=== PATIENT | female | born 1950 | race Caucasian/White ===

== ENCOUNTER 2017-08-04 04:22 | Inpatient (IN) ==
[2017-08-04] MEDS ORDERED: *HR* Morphine 2 MG/ML SYRINGE IVP PRN (08:03)
[2017-08-04] MEDS ORDERED: Naloxone 0.4 MG/ML INJ IVP PRN (08:03)
[2017-08-04] MEDS ORDERED: 0.9 % Sodium Chloride 1,000 ML IVC ONE (08:07)
[2017-08-04] MEDS ORDERED: D5% in Water 1,000 ML IVC PRN (08:08)
[2017-08-04] MEDS ORDERED: *HR* Dextrose 50 % in Water (Syg) 50 ML SYRINGE IVP PRN (08:08)
[2017-08-04] MEDS ORDERED: Dextrose Gel 15 GM/37.5 ML TUBE PO PRN ×2 (08:08)
--- NOTE | 2017-08-04 08:46 | Internal Med History&Physical ---
Date of Encounter: 08/04/17 Time of Encounter: 08:38 Assessment and Plan (1) Sepsis Current visit: Yes Status: Acute Presented to outside facility with fever, tachycardia, leukocytosis with left shift, and urinalysis suggestive of UTI. She also has bilateral CVA tenderness, suspect acute pyelonephritis We do not have any labs here Paper chart from outside facility reviewed Obtain blood and urine cultures here obtain Abdomen CT and Pelvis CT. Continue ceftriaxone 2g daily after obtaining cultures Repeat lactate now, from referral center-lactate was 2.0, give IVF now Continue close monitoring She is hemodynamically stable at this time Qualifiers: Sepsis type: sepsis due to unspecified organism Qualified Code(s): A41.9 - Sepsis, unspecified organism (2) Acute pyelonephritis Current visit: Yes Status: Acute as above (3) UTI (urinary tract infection) Current visit: Yes Status: Acute as above Qualifiers: Urinary tract infection type: acute pyelonephritis Qualified Code(s): N10 - Acute pyelonephritis (4) CECIL (acute kidney injury) Current visit: Yes Status: Acute baseline unknown Presented to outside facility with Cr 2.45 Continue hydration, monitor chem Follow Abd CT reports, obtain Renal USS Avoid nephrotoxins (5) Morbid obesity with BMI of 50.0-59.9, adult Current visit: Yes Status: Chronic Bed bound Lifestyle modification PTOT eval (6) Diabetes Current visit: Yes Status: Chronic check A1C Insulin dependent ADA diet FS ACHS Start on levemir, lispro, sliding scale, Addenduem: A1C resulted 4.7, hold levemir and meal time insulin, sliding scale only for now Qualifiers: Diabetes mellitus type: type 2 Diabetes mellitus complication status: with skin complications Diabetes mellitus complication detail: with foot ulcer Diabetes mellitus terminal gauger insulin use: with terminal gauger use Qualified Code(s) : E11.621 - Type 2 diabetes mellitus with foot ulcer; L97.509 - Non-pressure chronic ulcer of other part of unspecified foot with unspecified severity; L97.509 - Non-pressure chronic ulcer of other part of unspecified foot with unspecified severity; L97.509 - Non-pressure chronic ulcer of other part of unspecified foot with unspecified severity; L97.509 - Non-pressure chronic ulcer of other part of unspecified foot with unspecified severity; Z79.4 - long term care phlebotomist (current) use of insulin; Z79.4 - [facility] (current) use of insulin; Z79.4 - [facility] (current) use of insulin; Z79.4 - long term care phlebotomist (current) use of insulin (7) Factor V Leiden Current visit: Yes Status: Chronic INR 2.0 Continue Warfarin, pharm to dose (8) Chronic ulcer of leg Current visit: Yes Status: Acute Chronic, continue wound dressing, wound looks clean Consider podiatry eval prior to discharge Qualifiers: Laterality: right Non-pressure ulcer stage: unspecified non-pressure ulcer stage Qualified Code(s): L97.919 - Non-pressure chronic ulcer of unspecified part of right lower leg with unspecified severity Internal Medicine - H&P: HPI Chief complaint: I hava a UTI Admitted From: Home Plans for Post Hospital Care: Home History of present illness: Ms. Jacobsen is a 67 year old female with Morbid Obesity, Factor V leiden , Hx of DVT on Coumadin, bed bound , DM She was transferred from outside facility for management of sepsis secondary to UTI , with lactic acidosis and CECIL Patient is seen and evaluated at bedside She states she has been bed bound and not ambulatory on her feet "because her doctor said so" she has a chronic right heel wound which she has been told not to bear weight on. She was in her usual state of health till a few days ago when she developed frequency and burning urination and associated fever, chills , rigors and back pain. She also has been coughing, productive of sputum, no sick contacts, no chest pain, she has chronic leg swelling from venous stasis. She denies shortness of breath, she is currently not ambulatory. She is on anticoagulation for Factor V leiden. She denies diarrhea, she reports associated nausea and poor oral intake. No vomiting at this time. She denies recent instrumentation, no recent hospitalizations. At referral facility, she was worked up and found to be tachycardic, she had a WBC of 19.5 with left shift, Lactic acidosis of 2.0, UA showed LE negative, [place] +, few bacteria. She was sent here for further management. Past Med Surg Social Fam HX - Past Medical History Medical history: DVT, diabetes, other (factor V leiden) Psychiatric history: no psych history - Past Surgical History Surgical History: hysterectomy - Social History Smoking Status: Never smoker Smokeless Tobacco Status: No Alcohol use: none Drug use: none - Family History Mother Living Status: Cause of : alzheimers Hx Family Cancer: Yes (colon cancer) Father Living Status: Hx Family Cardiac Disorders: Yes Hx Family Cancer: Yes Internal Medicine - H&P: Meds Gabapentin [Neurontin] 600 mg PO BID 08/04/17 [History] Gabapentin [Neurontin] 900 mg PO HS 08/04/17 [History] Insulin Glargine [Lantus] 46 units IJ HS 08/04/17 [History] Warfarin [Coumadin] 5 mg PO 1800 08/04/17 [History] 3 Allergy/AdvReac Type Severity Reaction Status Date / Time acetaminophen [From Vicodin] AdvReac Fever Verified 08/04/17 12:11 hydrocodone [From Vicodin] AdvReac Fever Verified 08/04/17 12:11 All Systems PM: A 10-system review of systems was performed and is negative for pertinent findings except as documented above in the HPI. - Constitutional Constitutional: chills, fever(s), malaise - EENT Eyes: no change in vision, no discharge, no pain, no photophobia Ears: no ear discharge, no ear pain, no tinnitus Nose, mouth and throat: no dysphagia, no nasal discharge, no neck pain, no sore throat - Cardiovascular Cardiovascular ROS IM: no chest pain, no diaphoresis, no dyspnea, no lightheadedness, no palpitations, no syncope - Respiratory Respiratory: cough - Gastrointestinal Gastrointestinal: no abdominal pain, no diarrhea, no hematemesis, no hematochezia, no melena, no nausea, no vomiting - Genitourinary Genitourinary: dysuria, flank pain, urinary frequency - Musculoskeletal Musculoskeletal ROS IM: no numbness, no tingling - Integumentary Integumentary IM: no rash, no unusual bruising - Neurological Neurological ROS: no confusion, no convulsions, no focal weakness, no numbness, no tingling, no tremor(s) - Hematologic/Lymphatic Hematologic/Lymphatic: no easy bruising - Constitutional Vitals: Temp Pulse Resp BP Pulse Ox 98.5 F 87 16 103/50 97 08/04/17 06:20 08/04/17 06:20 08/04/17 06:20 08/04/17 06:20 08/04/17 06:20 General appearance: Present: disheveled, A&O X 3, morbidly obese - Head Head exam: Present: atraumatic, normocephalic - Eye Eye exam: Present: PERRL, conjuntiva pink, sclera anicteric Pupils: Present: PERRL - Neck Neck exam general surgery: Present: supple, trachea midline. Absent: lymphadenopathy - Respiratory Respiratory exam: Present: CTAB. Absent: accessory muscle use, rales, rhonchi, wheezes - Cardiovascular Cardiovascular exam: Present: RRR, +S1, +S2. Absent: diastolic murmur, gallop, rubs, systolic murmur - GI/Abdominal Additional comments: Morbidly obese, not tender, no visible wounds under her pannus. No palpably enlarged organs. - Extremities Exam Additional comments: chronic venous stasis changes with chronic dermatitis, Right heel/ankle wound, looks clean, no discharges. Pulses present. - Back Exam Additional comments: CVA tenderness bilaterally, equivocally - Neurological Exam Neurological exam: Present: alert, CN II-XII intact, oriented X3, no focal deficits. Absent: pronater drift, facial droop, speech deficit - Skin Additional comments: multiple trunk excoriations, worse on the upper extremities, looks like flea bites. -patient states she picks on them. Internal Med - H&P Results - Labs CBC & Chem 7: 08/04/17 09:46 08/04/17 09:46
[2017-08-04 09:56] LABS: Basophils % 0.2 %; Eosinophils % 0.2 %; Hematocrit 32.3 % (35.3-44.9); Hemoglobin 9.9 g/dL (11.5-15.4); Immature Granulocytes % 0.8 % (0-4); Lymphocytes # 1.5 K/mcL (0.6-4.6); Lymphocytes % 8.6 %; Mean Corpuscular HGB Conc 30.7 g/dL (31.6-35.5); Mean Corpuscular Volume 91.2 fL (83.0-100.0); Mean Platelet Volume 9.9 fL (9.4-12.4); Monocytes # 0.8 K/mcL (0.0-1.3); Monocytes % 4.4 %; Neutrophils # 14.7 K/mcL (1.6-8.9); Platelet Count 186 K/mcL (140-400); Red Blood Count 3.54 M/mcL (3.82-4.97); Segmented Neutrophils % 85.8 %
[2017-08-04] MEDS: Gabapentin 300 MG CAPSULE PO SCH ×4 (09:57→22:43)
[2017-08-04 10:01] LABS: Prothrombin Time 22.2 Seconds (9.4-12.1)
[2017-08-04 10:03] LABS: Hemoglobin A1C 4.7 %
[2017-08-04 10:18] LABS: Albumin 3.2 g/dL (3.5-5.7); Albumin/Globulin Ratio 0.8 (1.1-2.2); Bilirubin,Total 0.5 mg/dL (0.3-1.0); Calcium 8.5 mg/dL (8.6-10.3); Globulin 4.1 g/dL (2.4-3.5); Potassium 4.4 mEq/L (3.5-5.1); Total Protein 7.3 g/dL (6.4-8.9)
[2017-08-04] MEDS: Insulin LISPRO 300 UNITS/3 ML VIAL SQ SCH ×5 (11:58→22:43)
[2017-08-04] MEDS: cefTRIAXone 2,000 MG in Water for inj. (sterile) 20 ML 20 ML IVP SCH (13:24)
[2017-08-04] MEDS ORDERED: *HR* Warfarin 4 MG TABLET PO ONE (18:00)
[2017-08-04] MEDS ORDERED: Warfarin perPT PO PRN (18:00)
[2017-08-04] MEDS ORDERED: Insulin DETEMIR 100 UNIT/ML X5UNITS SQ SCH (21:00)
[2017-08-05] MEDS: Nystatin POWDER 30 GM BOTTLE TP SCH ×3 (02:19→20:56)
[2017-08-05 02:58] LABS: Basophils % 0.4 %; Eosinophils # 0.3 K/mcL (0.0-0.6); Eosinophils % 3.3 %; Hematocrit 29.3 % (35.3-44.9); Hemoglobin 8.8 g/dL (11.5-15.4); Immature Granulocytes % 0.4 % (0-4); Lymphocytes # 1.9 K/mcL (0.6-4.6); Lymphocytes % 21.6 %; Mean Corpuscular Hemoglobin 27.8 pg (28.0-33.3); Mean Corpuscular Volume 92.4 fL (83.0-100.0); Mean Platelet Volume 10.1 fL (9.4-12.4); Monocytes # 0.6 K/mcL (0.0-1.3); Monocytes % 6.4 %; Neutrophils # 5.8 K/mcL (1.6-8.9); Platelet Count 167 K/mcL (140-400); Red Blood Count 3.17 M/mcL (3.82-4.97); Red Cell Distribution Width 15.1 % (11.5-14.5); Segmented Neutrophils % 67.9 %
[2017-08-05 03:09] LABS: INR 2.2; Prothrombin Time 23.7 Seconds (9.4-12.1)
[2017-08-05 03:18] LABS: Calcium 8.4 mg/dL (8.6-10.3); Potassium 4.9 mEq/L (3.5-5.1)
[2017-08-05] MEDS: Insulin LISPRO 300 UNITS/3 ML VIAL SQ SCH ×7 (08:53→20:56)
[2017-08-05] MEDS: Gabapentin 300 MG CAPSULE PO SCH ×3 (08:54→20:56)
[2017-08-05] MEDS: cefTRIAXone 2,000 MG in Water for inj. (sterile) 20 ML 20 ML IVP SCH (12:13)
[2017-08-05] MEDS ORDERED: *HR* Warfarin 5 MG TABLET PO ONE (18:00)
[2017-08-05] MEDS: Leptospermum Honey Gel 44 ML TUBE TP SCH (22:11)
--- NOTE | 2017-08-05 23:58 | Internal Med Progress Note ---
Date of Encounter: 08/06/17 Time of Encounter: 14:58 - Assessment and plan (1) Sepsis Current Visit: Yes Status: Acute Assessment and plan: Likely from UTI/Pyelonephritis Presented to outside facility with fever, tachycardia, leukocytosis with left shift, and urinalysis suggestive of UTI. She also has bilateral CVA tenderness, suspect acute pyelonephritis Repeat lactate now, from referral center-lactate was 2.0, give IVF now Continue close monitoring She is hemodynamically stable at this time CT abdomen/pelvis: findings consistent with pyelonephritis 08/06: Continue Rocephin Repeat urinalysis, original sample not sufficient for analysis Kidney function worsened, patient easily fluid overloads but she will need hydration PT/OT recommends SNF/ECF on discharge Qualifiers: Sepsis type: sepsis due to unspecified organism Qualified Code(s): A41.9 - Sepsis, unspecified organism (2) Acute pyelonephritis Current Visit: Yes Status: Acute Assessment and plan: Plan as above (3) Chronic ulcer of leg Current Visit: Yes Status: Acute Assessment and plan: Wound care following Qualifiers: Laterality: right Non-pressure ulcer stage: unspecified non-pressure ulcer stage Qualified Code(s): L97.919 - Non-pressure chronic ulcer of unspecified part of right lower leg with unspecified severity (4) Renal failure Current Visit: Yes Status: Acute Assessment and plan: Unsure of baseline will give IV and treat sepsis and then recheck. Qualifiers: Renal failure chronicity: unspecified chronicity Qualified Code(s): N19 - Unspecified kidney failure (5) UTI (urinary tract infection) Current Visit: Yes Status: Acute Assessment and plan: As above Qualifiers: Urinary tract infection type: acute pyelonephritis Qualified Code(s): N10 - Acute pyelonephritis (6) Diabetes Current Visit: Yes Status: Chronic Qualifiers: Diabetes mellitus type: type 2 Diabetes mellitus complication status: with skin complications Diabetes mellitus complication detail: with foot ulcer Diabetes mellitus roasterman insulin use: with roasterman use Qualified Code(s) : E11.621 - Type 2 diabetes mellitus with foot ulcer; L97.509 - Non-pressure chronic ulcer of other part of unspecified foot with unspecified severity; L97.509 - Non-pressure chronic ulcer of other part of unspecified foot with unspecified severity; L97.509 - Non-pressure chronic ulcer of other part of unspecified foot with unspecified severity; L97.509 - Non-pressure chronic ulcer of other part of unspecified foot with unspecified severity; Z79.4 - halfway (current) use of insulin; Z79.4 - halfway (current) use of insulin; Z79.4 - halfway (current) use of insulin; Z79.4 - halfway (current) use of insulin (7) Factor V Leiden Current Visit: Yes Status: Chronic Assessment and plan: On coumadin (8) Morbid obesity with BMI of 50.0-59.9, adult Current Visit: Yes Status: Chronic - Subjective Interval history: Patient has complaints of back pain, has not been active. States overall feeling better since admission. States feels less groggy. - Constitutional Vitals: Temp Pulse Resp BP Pulse Ox 97.7 F 82 15 128/59 95 08/05/17 20:00 08/05/17 20:00 08/05/17 20:00 08/05/17 20:00 08/05/17 20:00 General appearance: Present: disheveled, A&O X 3, morbidly obese Exam: - Head Head exam: Present: atraumatic, normocephalic - Eye Eye exam: Present: PERRL, conjuntiva pink, sclera anicteric Pupils: Present: PERRL - Neck Neck exam general surgery: Present: supple, trachea midline. Absent: lymphadenopathy - Respiratory Respiratory exam: Present: CTAB. Absent: accessory muscle use, rales, rhonchi, wheezes - Cardiovascular Cardiovascular exam: Present: RRR, +S1, +S2. Absent: diastolic murmur, gallop, rubs, systolic murmur - GI/Abdominal Additional comments: Morbidly obese, not tender, no visible wounds under her pannus. No palpably enlarged organs. - Extremities Exam Additional comments: chronic venous stasis changes with chronic dermatitis, Right heel/ankle wound, looks clean, no discharges. Pulses present. - Back Exam Additional comments: CVA tenderness bilaterally, equivocally - Neurological Exam Neurological exam: Present: alert, CN II-XII intact, oriented X3, no focal deficits. Absent: pronater drift, facial droop, speech deficit - Skin Additional comments: multiple trunk excoriations, worse on the upper extremities, looks like flea bites. -patient states she picks on them. Internal Medicine: Result - Labs CBC & Chem 7: 08/06/17 04:19 08/06/17 04:19 Labs: Short CBC 08/05/17 Range/Units 02:32 WBC 8.6 (4.3-11.1) K/mcL Hgb 8.8 L (11.5-15.4) g/dL Hct 29.3 L (35.3-44.9) % Plt Count 167 (140-400) K/mcL Neutrophils # 5.8 (1.6-8.9) K/mcL BMP 08/05/17 02:32 Sodium 138 Potassium 4.9 Chloride 110 H Carbon Dioxide 21 L BUN 34 H Creatinine 2.36 H Glucose 77 Calcium 8.4 L - ABG Interpretation ABG results: PT/INR, D-dimer PT 23.7 Seconds (9.4-12.1) H 08/05/17 02:32 Consult Discharge Plan - Plan Referrals: Kenyetta Manning, EMILY [Primary Care Provider] -
[2017-08-06 04:52] LABS: Basophils % 0.6 %; Eosinophils # 0.5 K/mcL (0.0-0.6); Eosinophils % 8.4 %; Hematocrit 32.7 % (35.3-44.9); Hemoglobin 9.8 g/dL (11.5-15.4); Immature Granulocytes % 0.5 % (0-4); Lymphocytes # 1.5 K/mcL (0.6-4.6); Lymphocytes % 23.2 %; Mean Corpuscular Hemoglobin 27.6 pg (28.0-33.3); Mean Corpuscular Volume 92.1 fL (83.0-100.0); Mean Platelet Volume 10.6 fL (9.4-12.4); Monocytes # 0.5 K/mcL (0.0-1.3); Monocytes % 8.2 %; Neutrophils # 3.8 K/mcL (1.6-8.9); Platelet Count 180 K/mcL (140-400); Red Blood Count 3.55 M/mcL (3.82-4.97); Red Cell Distribution Width 15.4 % (11.5-14.5); Segmented Neutrophils % 59.1 %
[2017-08-06 04:57] LABS: INR 2.4; Prothrombin Time 26.5 Seconds (9.4-12.1)
[2017-08-06 05:04] LABS: Calcium 8.6 mg/dL (8.6-10.3); Potassium 4.6 mEq/L (3.5-5.1)
[2017-08-06] MEDS: Insulin LISPRO 300 UNITS/3 ML VIAL SQ SCH ×7 (08:16→20:03)
[2017-08-06] MEDS ORDERED: 0.9 % Sodium Chloride 500 ML IVC ONE (08:17)
--- NOTE | 2017-08-06 08:27 | Internal Med Progress Note ---
Date of Encounter: 08/06/17 Time of Encounter: 08:24 - Assessment and plan (1) Sepsis Current Visit: Yes Status: Acute Assessment and plan: Likely from UTI/Pyelonephritis Presented to outside facility with fever, tachycardia, leukocytosis with left shift, and urinalysis suggestive of UTI. She also has bilateral CVA tenderness, suspect acute pyelonephritis Repeat lactate now, from referral center-lactate was 2.0, give IVF now Continue close monitoring She is hemodynamically stable at this time CT abdomen/pelvis: findings consistent with pyelonephritis 08/06: Continue Rocephin Repeat urinalysis, original sample not sufficient for analysis Kidney function worsened, patient easily fluid overloads but she will need hydration PT/OT recs SNF/ECF on discharge Qualifiers: Sepsis type: sepsis due to unspecified organism Qualified Code(s): A41.9 - Sepsis, unspecified organism (2) Acute pyelonephritis Current Visit: Yes Status: Acute Assessment and plan: Plan as above (3) Renal failure Current Visit: Yes Status: Acute Assessment and plan: Unsure if acute or chronic, baseline unknown CT abdomen/pelvis shows findings consistent with pyelonephritis. Urine output about 300 per 8 hours Patient will need additional IVF. She does get fluid overloaded easily so we will start with 500 ml bolus followed by 100 ml/hr and check fluid status. Strict I/Os Consult Nephrology, recommendations appreciated. Qualifiers: Renal failure chronicity: unspecified chronicity Qualified Code(s): N19 - Unspecified kidney failure (4) UTI (urinary tract infection) Current Visit: Yes Status: Acute Qualifiers: Urinary tract infection type: acute pyelonephritis Qualified Code(s): N10 - Acute pyelonephritis (5) Morbid obesity with BMI of 50.0-59.9, adult Current Visit: Yes Status: Chronic (6) Diabetes Current Visit: Yes Status: Chronic Assessment and plan: Levemir 22 units HS, Humalog TID with meals, ISS Qualifiers: Diabetes mellitus type: type 2 Diabetes mellitus complication status: with skin complications Diabetes mellitus complication detail: with foot ulcer Diabetes mellitus alf insulin use: with alf use Qualified Code(s) : E11.621 - Type 2 diabetes mellitus with foot ulcer; L97.509 - Non-pressure chronic ulcer of other part of unspecified foot with unspecified severity; L97.509 - Non-pressure chronic ulcer of other part of unspecified foot with unspecified severity; L97.509 - Non-pressure chronic ulcer of other part of unspecified foot with unspecified severity; L97.509 - Non-pressure chronic ulcer of other part of unspecified foot with unspecified severity; Z79.4 - retirement (current) use of insulin; Z79.4 - terminologist (current) use of insulin; Z79.4 - terminologist (current) use of insulin; Z79.4 - terminologist (current) use of insulin (7) Chronic ulcer of leg Current Visit: Yes Status: Acute Assessment and plan: Wound care following Qualifiers: Laterality: right Non-pressure ulcer stage: unspecified non-pressure ulcer stage Qualified Code(s): L97.919 - Non-pressure chronic ulcer of unspecified part of right lower leg with unspecified severity - Subjective Interval history: Patient doing better Now ambulates Denies fevers/chills, denies pain. - Constitutional Vitals: Temp Pulse Resp BP Pulse Ox 98.2 F 84 14 124/64 99 08/06/17 05:38 08/06/17 05:38 08/06/17 05:38 08/06/17 05:38 08/06/17 05:38 General appearance: Present: disheveled, A&O X 3, morbidly obese Exam: - Head Head exam: Present: atraumatic, normocephalic - Eye Eye exam: Present: PERRL, conjuntiva pink, sclera anicteric Pupils: Present: PERRL - Neck Neck exam general surgery: Present: supple, trachea midline. Absent: lymphadenopathy - Respiratory Respiratory exam: Present: CTAB. Absent: accessory muscle use, rales, rhonchi, wheezes - Cardiovascular Cardiovascular exam: Present: RRR, +S1, +S2. Absent: diastolic murmur, gallop, rubs, systolic murmur - GI/Abdominal Additional comments: Morbidly obese, not tender, no visible wounds under her pannus. No palpably enlarged organs. - Extremities Exam Additional comments: chronic venous stasis changes with chronic dermatitis, Right heel/ankle wound, looks clean, no discharges. Pulses present. - Back Exam Additional comments: CVA tenderness bilaterally, equivocally - Neurological Exam Neurological exam: Present: alert, CN II-XII intact, oriented X3, no focal deficits. Absent: pronater drift, facial droop, speech deficit - Skin Additional comments: multiple trunk excoriations Internal Medicine: Result - Labs CBC & Chem 7: 08/06/17 04:19 08/06/17 04:19 Labs: Short CBC 08/06/17 Range/Units 04:19 WBC 6.3 (4.3-11.1) K/mcL Hgb 9.8 L (11.5-15.4) g/dL Hct 32.7 L (35.3-44.9) % Plt Count 180 (140-400) K/mcL Neutrophils # 3.8 (1.6-8.9) K/mcL BMP 08/06/17 04:19 Sodium 139 Potassium 4.6 Chloride 110 H Carbon Dioxide 22 L BUN 38 H Creatinine 2.50 H Glucose 93 Calcium 8.6 - ABG Interpretation ABG results: PT/INR, D-dimer PT 26.5 Seconds (9.4-12.1) H 08/06/17 04:19 Consult Discharge Plan - Plan Referrals: Kenyetta Manning, DIVING [employer]ARD [employer]SEMBLER [Primary Care Provider] -
[2017-08-06] MEDS: 0.9 % Sodium Chloride 1,000 ML IVC SCH (09:36)
[2017-08-06 09:38] LABS: Bilirubin,Urine Negative (Negative); Blood,Urine Large (Negative); Clarity,Urine Cloudy (Clear); Color,Urine Yellow (Yellow); Glucose,Urine (UA) Normal (Normal); Ketones,Urine Negative (Negative); Leukocyte Esterase,Urine Small (Negative); Nitrite,Urine Negative (Negative); Protein,Urine 100 mg/dL (Neg-Trace); Specific Gravity,Urine 1.011 (1.010-1.025); Urobilinogen,Urine Normal (Normal)
[2017-08-06] MEDS: Leptospermum Honey Gel 44 ML TUBE TP SCH ×2 (09:39→20:04)
[2017-08-06] MEDS: Nystatin POWDER 30 GM BOTTLE TP SCH ×2 (09:39→20:05)
[2017-08-06 09:40] LABS: Bacteria,Urine None Seen per hpf (None-Few); Hyaline Casts,Urine Few per lpf (None-Few); Squamous Epithelial Cell,Urine Many per lpf (None-Few); WBC,Urine 15-30 per hpf (0-3)
--- NOTE | 2017-08-06 11:27 | Nephrology Consult Note ---
<Emmy Monzon - Last Filed: 08/06/17 11:42> Date of Encounter: 08/06/17 Time of Encounter: 11:23 Assessment and Plan (1) CECIL (acute kidney injury) Status: Acute Review of old labs show one result from 02/06/15-Scr 1.65 and GFR 31 Today Scr 2.50, GFR 19 Unclear if patient has CKD or all CECIL so we will proceed with both the CECIL and CKD workup to include: urine sodium, urine creatinine, urine eosinophils, CPK, renal ultrasound, serum uric acid, PTH, C3 & C4 compliment, Vit D 25-OH, SAGAR, SPEP, UPEP, protein/creatinine ratio UPO 200ml yesterday Today 600ml so far Agree with IVF Continue strict I/Os Avoid nephrotoxins Patient is on a high dose of Gabapentin-recommend renal appropriate dose: if Scr baseline is truly in the 30s then no more than 700mg bid; if workup shows kidney function is even less, then Gabapentin would need to be decreased further. (2) Acute pyelonephritis Status: Acute per primary team (3) Sepsis Status: Acute per primary team Qualifiers: Sepsis type: sepsis due to unspecified organism Qualified Code(s): A41.9 - Sepsis, unspecified organism (4) Diabetes Status: Chronic per primary team Qualifiers: Diabetes mellitus type: type 2 Diabetes mellitus complication status: with skin complications Diabetes mellitus complication detail: with foot ulcer Diabetes mellitus alf insulin use: with termite treater helper use Qualified Code(s) : E11.621 - Type 2 diabetes mellitus with foot ulcer; L97.509 - Non-pressure chronic ulcer of other part of unspecified foot with unspecified severity; L97.509 - Non-pressure chronic ulcer of other part of unspecified foot with unspecified severity; L97.509 - Non-pressure chronic ulcer of other part of unspecified foot with unspecified severity; L97.509 - Non-pressure chronic ulcer of other part of unspecified foot with unspecified severity; Z79.4 - USP (current) use of insulin; Z79.4 - USP (current) use of insulin; Z79.4 - USP (current) use of insulin; Z79.4 - USP (current) use of insulin (5) Morbid obesity with BMI of 50.0-59.9, adult Status: Chronic per primary team History of Present Illness - Reason for Consult Consult date: 08/06/17 - Chief Complaint CECIL, sepsis - History of Present Illness Ms. Jacobsen is a 67 year old female with a PMH of morbid obesity, Factor V leiden , Hx of DVT on Coumadin, bed bound , and DM She was transferred from outside facility for management of sepsis secondary to UTI , with lactic acidosis and CECIL. She has chronic leg swelling from venous stasis and is on anticoagulation for Factor V leiden. Nephrology has been consulted for decreased kidney function. Patient states she is unaware of any kidney disease either in herself or any family member. She denies taking NSAIDs. She takes Gabapentin 600mg am & noon, plus another 900mg at hs. Review of old labs on shows one lab on 02/06/15 with a Scr of 1.65 and GFR of 31. Past Med Surg Social Fam HX - Past Medical History Medical history: DVT, diabetes, other (factor V leiden) Psychiatric history: no psych history - Past Surgical History Surgical History: hysterectomy - Social History Smoking Status: Never smoker Smokeless Tobacco Status: No Alcohol use: none Drug use: none - Family History Mother Living Status: Cause of : alzheimers Hx Family Cancer: Yes (colon cancer) Father Living Status: Hx Family Cardiac Disorders: Yes Hx Family Cancer: Yes Medications and Allergies Insulin Glargine [Lantus] 46 units IJ HS 08/04/17 [History] Cephalexin [Keflex] 500 mg PO TID 7 Days #21 capsule 08/10/17 [Rx] Ergocalciferol (VITAMIN D2) [Drisdol (50,000 Unit)] 50,000 unit PO QWEEK #4 capsule 08/10/17 [Rx] Ondansetron [Zofran] 4 mg PO Q8HR PRN #15 tablet 08/10/17 [Rx] 3 Allergy/AdvReac Type Severity Reaction Status Date / Time acetaminophen [From Vicodin] AdvReac Fever Verified 08/04/17 12:11 hydrocodone [From Vicodin] AdvReac Fever Verified 08/04/17 12:11 Review of Systems All Systems: reviewed and no additional remarkable complaints except as stated Constitutional: lethargy, malaise, no fever(s) Cardiovascular: leg edema, no chest pain, no dyspnea Gastrointestinal: nausea, no diarrhea Neurological: no abnormal speech, no behavioral changes Exam - Vital Signs Vital signs: Initial Vital Signs Temp Pulse Resp BP Pulse Ox 98.5 F 87 16 103/50 97 08/04/17 06:20 08/04/17 06:20 08/04/17 06:20 08/04/17 06:20 08/04/17 06:20 Vital Signs - Last 8 Hours Temp Pulse Resp BP Pulse Ox 08/06/17 09:44 99 08/06/17 08:00 97.5 F L 83 14 146/77 99 08/06/17 05:38 98.2 F 84 14 124/64 99 Intake and Output 08/05/17 08/06/17 08/06/17 23:59 07:59 15:59 Intake Total 240 / 240 400 / 400 Output Total 300 / 300 300 / 300 Balance 240 / 240 -300 / -300 100 / 100 Intake: Oral 240 / 240 400 / 400 Output: Urine 300 / 300 300 / 300 Other: Meal Dinner Breakfast Percent of Meal Consumed 100% 100% # Voids 1 1 Weight 139.797 kg Blood Glucose* 107 80 Patient Weight 08/06/17 23:59 Weight 139.797 kg - General Appearance General appearance: obese EENT: ATNC, mucous membranes moist, hearing intact, vision intact Neck: supple Respiratory: clear Cardiology: edema, normal S1, normal S2 Gastrointestinal: no tenderness, no guarding Integumentary: warm and dry Psychiatric: mood/affect appropriate, cooperative Results - Lab Results 08/06/17 04:19 08/06/17 04:19 Most recent lab results Calcium 8.6 mg/dL (8.6-10.3) 08/06/17 04:19 Consult Discharge Plan - Plan Instructions: Cephalexin (By mouth), Ondansetron (By mouth) Referrals: Kenyetta Manning, INFORMATION SYSTEMS SECURITY DEVELOPER [Primary Care Provider] - (Please call on Saturday to set up a hospital follow up.) Prescriptions: Ondansetron [Zofran] 4 mg PO Q8HR PRN #15 tablet PRN Reason: Nausea And Vomiting Cephalexin [Keflex] 500 mg PO TID 7 Days #21 capsule Ergocalciferol (VITAMIN D2) [Drisdol (50,000 Unit)] 50,000 unit PO QWEEK #4 capsule <Sharon Wasserman - Last Filed: 08/14/17 13:30> Date of Encounter: 08/06/17 Exam - Vital Signs Vital signs: Initial Vital Signs Temp Pulse Resp BP Pulse Ox 98.5 F 87 16 103/50 97 08/04/17 06:20 08/04/17 06:20 08/04/17 06:20 08/04/17 06:20 08/04/17 06:20 Results - Lab Results 08/10/17 05:55 08/10/17 05:55 Most recent lab results Calcium 8.3 mg/dL (8.6-10.3) L 08/10/17 05:55 Phosphorus 3.8 mg/dL (2.7-4.5) 08/09/17 06:36 Magnesium 2.1 mg/dL (1.6-2.6) 08/09/17 06:36 Urine Creatinine 58 mg/dL 08/06/17 14:40 Urine Sodium 73.5 mEq/L 08/06/17 14:40 Urine Total Protein SEE NOTE mg/d (10-140) 08/06/17 14:40 - Attending Attestation I examined this patient and my medical decision-making was reviewed with the Resident Physician/INFORMATION SYSTEMS SECURITY DEVELOPER. I agree with the documented findings, disposition and treatment plan as described except to the extent set forth below. Pt seen and examined with PMH of DM, factor v leiden with DVT on anticoag, morbid obesity and bed bound with chronic heel infection admitted as a transfer and being treated for UTI with sepsis. Renal consulted for rising SCr. Pt is a rather poor historian and no family member present at the time of evaluation. Most information obtained from previous records. Pt denied any prior history of renal disease but GFR in our system from 2014 was noted at 31. Will initiate both CECIL and CKD workup at this time. agree with IVF for volume repletion. No acute indication for ORACLE EBS ARCHITECT just yet but did dicuss the possibility if no improvement. Avoid nephrotoxins if possible and renally dosed all meds to reflect CECIL status.
[2017-08-06] MEDS: *HR* OxyCODONE Immed Rel 5 MG TABLET PO PRN (11:33)
[2017-08-06 12:42] LABS: Creatine Kinase < 10 Units/L (30-223); Uric Acid 7.2 mg/dL (2.3-7.6)
[2017-08-06] MEDS: cefTRIAXone 2,000 MG in Water for inj. (sterile) 20 ML 20 ML IVP SCH (13:00)
[2017-08-06 15:33] LABS: Protein/Creatinine Ratio,Urine 1.6 mg/mg (0.00-0.20); Sodium, Urine 73.5 mEq/L
[2017-08-06] MEDS ORDERED: *HR* Warfarin 5 MG TABLET PO ONE (18:00)
[2017-08-07 04:51] LABS: Basophils % 0.3 %; Eosinophils # 0.5 K/mcL (0.0-0.6); Eosinophils % 8.8 %; Hematocrit 30.3 % (35.3-44.9); Hemoglobin 9.2 g/dL (11.5-15.4); Immature Granulocytes % 0.3 % (0-4); Lymphocytes # 1.3 K/mcL (0.6-4.6); Lymphocytes % 21.9 %; Mean Corpuscular HGB Conc 30.4 g/dL (31.6-35.5); Mean Corpuscular Hemoglobin 27.9 pg (28.0-33.3); Mean Corpuscular Volume 91.8 fL (83.0-100.0); Mean Platelet Volume 10.7 fL (9.4-12.4); Monocytes # 0.4 K/mcL (0.0-1.3); Monocytes % 6.9 %; Neutrophils # 3.6 K/mcL (1.6-8.9); Platelet Count 167 K/mcL (140-400); Red Cell Distribution Width 15.3 % (11.5-14.5); Segmented Neutrophils % 61.8 %
[2017-08-07 05:07] LABS: INR 3.2; Prothrombin Time 35.4 Seconds (9.4-12.1)
[2017-08-07 05:17] LABS: Calcium 8.2 mg/dL (8.6-10.3); Potassium 4.5 mEq/L (3.5-5.1)
[2017-08-07] MEDS: Leptospermum Honey Gel 44 ML TUBE TP SCH (07:59)
[2017-08-07] MEDS: Nystatin POWDER 30 GM BOTTLE TP SCH (07:59)
[2017-08-07] MEDS: Insulin LISPRO 300 UNITS/3 ML VIAL SQ SCH ×7 (08:04→21:00)
[2017-08-07] MEDS: cefTRIAXone 2,000 MG in Water for inj. (sterile) 20 ML 20 ML IVP SCH (13:03)
--- NOTE | 2017-08-07 13:09 | Nephrology Progress Note ---
<Artem Hogan - Last Filed: 08/07/17 15:43> Date of Encounter: 08/07/17 Time of Encounter: 13:09 - Assessment and Plan (1) CECIL (acute kidney injury) Status: Acute CECIL on CKD stage III Baseline GFR 31 Today Scr 2.44, GFR 20 FeNa 2.2 % indicating Intrinsic etiology (e.g. ATN, AIN, glomerulonephritides) Renal ultrasound revealed mildly echogenic kidneys which may be seen in medical renal disease, 7.1 cm mildly complex left renal cyst, and significant postvoid residual measuring approximately 257 mL. UPO 1000ml yesterday Continue IVF Continue strict I/Os Avoid nephrotoxins Patient is on a high dose of Gabapentin-recommend renal appropriate dose: if Scr baseline is truly in the 30s then no more than 700mg bid; if workup shows kidney function is even less, then Gabapentin would need to be decreased further. (2) CKD (chronic kidney disease), stage III Status: Chronic Baseline GFR 31 Avoid nephrotoxins Continue to monitor (3) Proteinuria Status: Acute FeNa 2.2 % indicating Intrinsic etiology (e.g. ATN, AIN, glomerulonephritides) UA reveals 100 mg/dL urine protein Elevated protein/creatinine ratio 1.60 Negative urine eosinophils CPK < 10, serum uric acid 7.2, PTH 85, SAGAR, SPEP, UPEP, C3 & C4 compliment levels pending Qualifiers: Proteinuria type: unspecified Qualified Code(s): R80.9 - Proteinuria, unspecified (4) Vitamin D deficiency Status: Acute Vit D level 14 Supplement Vit D 50,000 U weekly Outpatient monitoring (5) Acute pyelonephritis Status: Acute Management per primary team (6) Renal cyst, left Status: Acute Renal ultrasound revealed 7.1 cm mildly complex left renal cyst Outpatient monitoring (7) Sepsis Status: Acute Management per primary team Qualifiers: Sepsis type: sepsis due to unspecified organism Qualified Code(s): A41.9 - Sepsis, unspecified organism (11) Diabetes Status: Chronic Management per primary team Qualifiers: Diabetes mellitus type: type 2 Diabetes mellitus complication status: with skin complications Diabetes mellitus complication detail: with foot ulcer Diabetes mellitus petroleum terminal plant operator insulin use: with petroleum terminal plant operator use Qualified Code(s) : E11.621 - Type 2 diabetes mellitus with foot ulcer; L97.509 - Non-pressure chronic ulcer of other part of unspecified foot with unspecified severity; L97.509 - Non-pressure chronic ulcer of other part of unspecified foot with unspecified severity; L97.509 - Non-pressure chronic ulcer of other part of unspecified foot with unspecified severity; L97.509 - Non-pressure chronic ulcer of other part of unspecified foot with unspecified severity; Z79.4 - MCC (current) use of insulin; Z79.4 - MCC (current) use of insulin; Z79.4 - MCC (current) use of insulin; Z79.4 - exterminator (current) use of insulin (12) Morbid obesity with BMI of 50.0-59.9, adult Status: Chronic Management per primary team Subjective Principal diagnosis: CECIL on CKD Interval history: Patient seen and examined resting comfortably in bed. Patient denies and new c/ o today. She had 1L UOP yesterday and reports adequate hydration. Family is at bedside. Objective - Vital Signs Vital signs: Vital Signs Temp Pulse Resp BP Pulse Ox 08/07/17 11:29 97.7 F 72 17 133/60 95 08/07/17 07:10 98.6 F 82 16 124/70 96 08/07/17 04:54 97.7 F 83 16 118/58 90 08/07/17 00:07 97.9 F 86 12 129/63 97 08/06/17 19:55 98.5 F 89 12 131/66 96 08/06/17 16:03 98.4 F 90 14 144/68 95 Intake and Output 08/06/17 08/07/17 08/07/17 23:59 07:59 15:59 Intake Total 400 / 400 240 / 240 Output Total 400 / 400 700 / 700 Balance -400 / -400 -300 / -300 240 / 240 Intake: Oral 240 / 240 Free Water 400 / 400 Output: Urine 400 / 400 700 / 700 Other: Meal Breakfast Percent of Meal Consumed 100% # Voids 1 Weight 142.5 kg Blood Glucose* 147 86 91 Patient Weight 08/07/17 23:59 Weight 142.5 kg - General Appearance General appearance: Present: well-developed, well-nourished, appears started age , obese EENT: Present: ATNC, PERRL, mucous membranes moist Neck: Present: supple Respiratory: Present: clear Cardiology: Present: no murmurs, no rub, no gallops, edema (Chronic lymphedema BLE), regular rate, regular rhythm, normal S1, normal S2 Gastrointestinal: Present: normoactive bowel sounds, no tenderness, no guarding , no organomegaly Integumentary: Present: no rash, warm and dry Neurologic: Present: no focal deficit, alert and oriented x3 Musculoskeletal: Present: no erythema, no cyanosis Psychiatric: Present: mood/affect appropriate, cooperative - Lab 08/07/17 04:15 08/07/17 04:15 Most recent lab results Calcium 8.2 mg/dL (8.6-10.3) L 08/07/17 04:15 Urine Creatinine 58 mg/dL 08/06/17 14:40 Urine Sodium 73.5 mEq/L 08/06/17 14:40 Urine Total Protein 93 mg/dL 08/06/17 14:40 - Imaging Kidney/bladder ultrasound: report reviewed Consult Discharge Plan - Plan Instructions: Cephalexin (By mouth), Ondansetron (By mouth) Referrals: Kenyetta Manning, MANIPULATIVE THERAPY SPECIALIST [Primary Care Provider] - (Please call on Saturday to set up a hospital follow up.) Prescriptions: Ondansetron [Zofran] 4 mg PO Q8HR PRN #15 tablet PRN Reason: Nausea And Vomiting Cephalexin [Keflex] 500 mg PO TID 7 Days #21 capsule Ergocalciferol (VITAMIN D2) [Drisdol (50,000 Unit)] 50,000 unit PO QWEEK #4 capsule <Sharon Wasserman - Last Filed: 09/03/17 23:41> Date of Encounter: 08/07/17 Objective - Lab 08/10/17 05:55 08/10/17 05:55 Most recent lab results Calcium 8.3 mg/dL (8.6-10.3) L 08/10/17 05:55 Phosphorus 3.8 mg/dL (2.7-4.5) 08/09/17 06:36 Magnesium 2.1 mg/dL (1.6-2.6) 08/09/17 06:36 Urine Creatinine 58 mg/dL 08/06/17 14:40 Urine Sodium 73.5 mEq/L 08/06/17 14:40 Urine Total Protein SEE NOTE mg/d (10-140) 08/06/17 14:40 - Attending Attestation I examined this patient and my medical decision-making was reviewed with the Resident Physician. I agree with the documented findings, disposition and treatment plan as described except to the extent set forth below. Pt seen and examined with family at bedside. UOP noted at 1000cc in the past 24hrs. Scr noted at 2.4, GFR 20 which is improving, baseline GFR around 30. Continue to avoid nephrotoxins if possible. No acute indication for FORENSIC MEDICAL EXAMINER. Renal dose all meds if possible.
[2017-08-07] MEDS: Sennosides/Docusate Sodium TABLET PO SCH ×2 (13:24→20:33)
[2017-08-07] MEDS: 0.9 % Sodium Chloride 1,000 ML IVC SCH ×2 (15:55→16:01)
[2017-08-07] MEDS: *HR* OxyCODONE Immed Rel 5 MG TABLET PO PRN (20:33)
--- NOTE | 2017-08-07 21:15 | Internal Med Progress Note ---
Date of Encounter: 08/07/17 Time of Encounter: 16:14 - Assessment and plan (1) Sepsis Current Visit: Yes Status: Acute Assessment and plan: Likely from UTI/Pyelonephritis Presented to outside facility with fever, tachycardia, leukocytosis with left shift, and urinalysis suggestive of UTI. She also has bilateral CVA tenderness, suspect acute pyelonephritis Repeat lactate now, from referral center-lactate was 2.0, give IVF now Continue close monitoring She is hemodynamically stable at this time CT abdomen/pelvis: findings consistent with pyelonephritis 08/06: Continue Rocephin Repeat urinalysis, original sample not sufficient for analysis Kidney function worsened, patient easily fluid overloads but she will need hydration PT/OT recs SNF/ECF on discharge Qualifiers: Sepsis type: sepsis due to unspecified organism Qualified Code(s): A41.9 - Sepsis, unspecified organism (2) Gross hematuria Current Visit: Yes Status: Acute Assessment and plan: Patient denied dysuria, frequency, change in odor. INR 3.2 today Likely related to UTI with treatment with coumadin for history of DVT. Renal cyst possible contributor - Hold next dose of coumadin - Follow-up INR and H&H - If hematuria persists, will consult Urology (3) Acute pyelonephritis Current Visit: Yes Status: Acute Assessment and plan: (UTI). Continue treatment of sepsis (4) Renal failure Current Visit: Yes Status: Acute Assessment and plan: Unsure if acute or chronic, baseline unknown CT abdomen/pelvis shows findings consistent with pyelonephritis. Urine output about 300 per 8 hours Patient will need additional IVF. She does get fluid overloaded easily so we will start with 500 ml bolus followed by 100 ml/hr and check fluid status. Strict I/Os Nephrology on board, recommendation appreciated. Qualifiers: Renal failure chronicity: unspecified chronicity Qualified Code(s): N19 - Unspecified kidney failure (5) UTI (urinary tract infection) Current Visit: Yes Status: Acute Assessment and plan: As above Qualifiers: Urinary tract infection type: acute pyelonephritis Qualified Code(s): N10 - Acute pyelonephritis (6) Morbid obesity with BMI of 50.0-59.9, adult Current Visit: Yes Status: Chronic (7) Diabetes Current Visit: Yes Status: Chronic Assessment and plan: Levemir 22 units HS, Humalog TID with meals, ISS Qualifiers: Diabetes mellitus type: type 2 Diabetes mellitus complication status: with skin complications Diabetes mellitus complication detail: with foot ulcer Diabetes mellitus prison insulin use: with prison use Qualified Code(s) : E11.621 - Type 2 diabetes mellitus with foot ulcer; L97.509 - Non-pressure chronic ulcer of other part of unspecified foot with unspecified severity; L97.509 - Non-pressure chronic ulcer of other part of unspecified foot with unspecified severity; L97.509 - Non-pressure chronic ulcer of other part of unspecified foot with unspecified severity; L97.509 - Non-pressure chronic ulcer of other part of unspecified foot with unspecified severity; Z79.4 - buttermaker (current) use of insulin; Z79.4 - retirement (current) use of insulin; Z79.4 - buttermaker (current) use of insulin; Z79.4 - retirement (current) use of insulin (8) Chronic ulcer of leg Current Visit: Yes Status: Acute Assessment and plan: Wound care following Qualifiers: Laterality: right Non-pressure ulcer stage: unspecified non-pressure ulcer stage Qualified Code(s): L97.919 - Non-pressure chronic ulcer of unspecified part of right lower leg with unspecified severity - Subjective Interval history: Had onset of hematuria this afternoon and nursing reported there was clots present. She was transferred to another floor later in day for administrative reasons. Nurse who took over patient care also noted that she had gross hematuria. This time without clots. Patient denied abdominal/suprapubic/flank pain, dysuria, frequency, change in odor. - Constitutional Vitals: Temp Pulse Resp BP Pulse Ox 97.5 F L 80 18 129/73 88 08/07/17 19:48 08/07/17 19:48 08/07/17 19:48 08/07/17 19:48 08/07/17 19:48 General appearance: Present: disheveled, A&O X 3, morbidly obese Exam: CVS: RRR Lungs: CTAB Abd: NT/ND, normal bowel sounds Ext: + bipedal edema extending to shins Internal Medicine: Result - Labs CBC & Chem 7: 08/07/17 04:15 08/07/17 04:15 Labs: Short CBC 08/07/17 Range/Units 04:15 WBC 5.8 (4.3-11.1) K/mcL Hgb 9.2 L (11.5-15.4) g/dL Hct 30.3 L (35.3-44.9) % Plt Count 167 (140-400) K/mcL Neutrophils # 3.6 (1.6-8.9) K/mcL BMP 08/07/17 04:15 Sodium 141 Potassium 4.5 Chloride 112 H Carbon Dioxide 24 BUN 37 H Creatinine 2.44 H Glucose 91 Calcium 8.2 L - ABG Interpretation ABG results: PT/INR, D-dimer PT 35.4 Seconds (9.4-12.1) H 08/07/17 04:15 Consult Discharge Plan - Plan Referrals: Kenyetta Manning, EMILY [Primary Care Provider] -
[2017-08-08 02:38] LABS: Alpha 2 Globulin (PEP) 0.84 g/dL (0.48-1.05); Beta Globulin (PEP) 1.25 g/dL (0.48-1.10)
[2017-08-08] MEDS: 0.9 % Sodium Chloride 1,000 ML IVC SCH (02:41)
[2017-08-08] MEDS: Nystatin POWDER 30 GM BOTTLE TP SCH ×3 (02:45→21:17)
[2017-08-08] MEDS: Leptospermum Honey Gel 44 ML TUBE TP SCH ×3 (02:45→21:17)
[2017-08-08] MEDS: *HR* OxyCODONE Immed Rel 5 MG TABLET PO PRN (03:45)
[2017-08-08 05:07] LABS: Basophils % 0.6 %; Eosinophils # 0.5 K/mcL (0.0-0.6); Eosinophils % 7.7 %; Hematocrit 31.6 % (35.3-44.9); Hemoglobin 9.4 g/dL (11.5-15.4); Immature Granulocytes % 0.4 % (0-4); Lymphocytes # 0.9 K/mcL (0.6-4.6); Lymphocytes % 13.4 %; Mean Corpuscular HGB Conc 29.7 g/dL (31.6-35.5); Mean Corpuscular Hemoglobin 27.2 pg (28.0-33.3); Mean Corpuscular Volume 91.6 fL (83.0-100.0); Mean Platelet Volume 10.3 fL (9.4-12.4); Monocytes # 0.6 K/mcL (0.0-1.3); Monocytes % 8.3 %; Neutrophils # 4.7 K/mcL (1.6-8.9); Nucleated Red Blood Cells 0.3 /100 WBC (0); Platelet Count 173 K/mcL (140-400); Red Blood Count 3.45 M/mcL (3.82-4.97); Red Cell Distribution Width 15.1 % (11.5-14.5); Segmented Neutrophils % 69.6 %
[2017-08-08 05:24] LABS: Calcium 8.4 mg/dL (8.6-10.3); Potassium 4.4 mEq/L (3.5-5.1)
[2017-08-08 05:32] LABS: INR 4.4; Prothrombin Time 48.9 Seconds (9.4-12.1)
--- NOTE | 2017-08-08 07:16 | Nephrology Progress Note ---
<Artem Hogan - Last Filed: 08/08/17 16:13> Date of Encounter: 08/08/17 Time of Encounter: 07:16 - Assessment and Plan (1) CECIL (acute kidney injury) Status: Acute CECIL on CKD stage III Baseline GFR 31 Today Scr 2.25, GFR 22 FeNa 2.2 % indicating Intrinsic etiology (e.g. ATN, AIN, glomerulonephritides) Renal ultrasound revealed mildly echogenic kidneys which may be seen in medical renal disease, 7.1 cm mildly complex left renal cyst, and significant postvoid residual measuring approximately 257 mL. UPO 1050ml yesterday Continue IVF Continue strict I/Os Avoid nephrotoxins Patient is on a high dose of Gabapentin-recommend renal appropriate dose: if Scr baseline is truly in the 30s then no more than 700mg bid; if workup shows kidney function is even less, then Gabapentin would need to be decreased further. (2) CKD (chronic kidney disease), stage III Status: Chronic Baseline GFR 31 Avoid nephrotoxins Continue to monitor (3) Proteinuria Status: Acute FeNa 2.2 % indicating Intrinsic etiology (e.g. ATN, AIN, glomerulonephritides) UA reveals 100 mg/dL urine protein Elevated protein/creatinine ratio 1.60 Negative urine eosinophils CPK < 10, serum uric acid 7.2, PTH 85, SAGAR negative, C3 & C4 compliment levels WNL UPEP pending Qualifiers: Proteinuria type: unspecified Qualified Code(s): R80.9 - Proteinuria, unspecified (4) Vitamin D deficiency Status: Acute Vit D level 14 Supplement Vit D 50,000 U weekly Outpatient monitoring (5) Acute pyelonephritis Status: Acute Management per primary team (6) Renal cyst, left Status: Acute Renal ultrasound revealed 7.1 cm mildly complex left renal cyst Outpatient monitoring (7) Sepsis Status: Acute Management per primary team Qualifiers: Sepsis type: sepsis due to unspecified organism Qualified Code(s): A41.9 - Sepsis, unspecified organism (11) Diabetes Status: Chronic Management per primary team Qualifiers: Diabetes mellitus type: type 2 Diabetes mellitus complication status: with skin complications Diabetes mellitus complication detail: with foot ulcer Diabetes mellitus shelter insulin use: with intermediate manager use Qualified Code(s) : E11.621 - Type 2 diabetes mellitus with foot ulcer; L97.509 - Non-pressure chronic ulcer of other part of unspecified foot with unspecified severity; L97.509 - Non-pressure chronic ulcer of other part of unspecified foot with unspecified severity; L97.509 - Non-pressure chronic ulcer of other part of unspecified foot with unspecified severity; L97.509 - Non-pressure chronic ulcer of other part of unspecified foot with unspecified severity; Z79.4 - group home (current) use of insulin; Z79.4 - termite renewal inspector (current) use of insulin; Z79.4 - group home (current) use of insulin; Z79.4 - group home (current) use of insulin (12) Morbid obesity with BMI of 50.0-59.9, adult Status: Chronic Management per primary team Subjective Principal diagnosis: CECIL on CKD Interval history: Patient seen and examined resting comfortably in bed. Patient reports constipation last PM and required fecal disimpaction. She also c/o hematuria vs a bleeding hemorrhoid. She had 1050 UOP yesterday and reports adequate hydration. Objective - Vital Signs Vital signs: Vital Signs Temp Pulse Resp BP Pulse Ox 08/08/17 02:49 97.4 F L 84 16 133/55 91 08/07/17 23:50 97.5 F L 76 16 153/73 92 08/07/17 19:48 97.5 F L 80 18 129/73 88 08/07/17 15:51 97.6 F 73 17 146/80 93 08/07/17 11:29 97.7 F 72 17 133/60 95 Intake and Output 08/07/17 08/07/17 08/08/17 15:59 23:59 07:59 Intake Total 240 / 240 1000 / 1000 Output Total 350 / 350 Balance 240 / 240 -350 / -350 1000 / 1000 Intake: IV Fluids 1000 / 1000 0.9 % Sodium Chloride 1,000 ML 1000 / 1000 @ 100 mls/hr IVC .Q10H [facility] Rx#: [id number] Oral 240 / 240 Output: Urine 350 / 350 Other: Meal Breakfast Percent of Meal Consumed 100% # Voids 1 1 Weight 144 kg Blood Glucose* 91 124 Patient Weight 08/08/17 23:59 Weight 144 kg - General Appearance General appearance: Present: well-developed, well-nourished, appears started age , obese EENT: Present: ATNC, PERRL, mucous membranes moist Neck: Present: supple Respiratory: Present: clear Cardiology: Present: no murmurs, no rub, no gallops, edema (Chronic lymphedema BLE), regular rate, regular rhythm, normal S1, normal S2 Gastrointestinal: Present: normoactive bowel sounds, no tenderness, no guarding , no organomegaly Integumentary: Present: no rash, warm and dry (Chronic venous stasis BLE) Neurologic: Present: no focal deficit, alert and oriented x3 Musculoskeletal: Present: no erythema, no cyanosis Psychiatric: Present: mood/affect appropriate, cooperative - Lab 08/08/17 04:46 08/08/17 04:46 Most recent lab results Calcium 8.4 mg/dL (8.6-10.3) L 08/08/17 04:46 Urine Creatinine 58 mg/dL 08/06/17 14:40 Urine Sodium 73.5 mEq/L 08/06/17 14:40 Urine Total Protein 93 mg/dL 08/06/17 14:40 Consult Discharge Plan - Plan Instructions: Cephalexin (By mouth), Ondansetron (By mouth) Referrals: Kenyetta Manning, DIGESTER OPERATOR HELPER [Primary Care Provider] - (Please call on Saturday to set up a hospital follow up.) Prescriptions: Ondansetron [Zofran] 4 mg PO Q8HR PRN #15 tablet PRN Reason: Nausea And Vomiting Cephalexin [Keflex] 500 mg PO TID 7 Days #21 capsule Ergocalciferol (VITAMIN D2) [Drisdol (50,000 Unit)] 50,000 unit PO QWEEK #4 capsule <Sharon Wasserman - Last Filed: 09/03/17 23:59> Date of Encounter: 08/08/17 Objective - Lab 08/10/17 05:55 08/10/17 05:55 Most recent lab results Calcium 8.3 mg/dL (8.6-10.3) L 08/10/17 05:55 Phosphorus 3.8 mg/dL (2.7-4.5) 08/09/17 06:36 Magnesium 2.1 mg/dL (1.6-2.6) 08/09/17 06:36 Urine Creatinine 58 mg/dL 08/06/17 14:40 Urine Sodium 73.5 mEq/L 08/06/17 14:40 Urine Total Protein SEE NOTE mg/d (10-140) 08/06/17 14:40 - Attending Attestation I examined this patient and my medical decision-making was reviewed with the Resident Physician. I agree with the documented findings, disposition and treatment plan as described except to the extent set forth below. Pt seen and examined with constipation overnight requiring fecal disimpaction. UOP noted at 1050cc in the past 24hrs. Scr noted at 2.25, GFR 22, improving. Baseline GFr around 30. Continue to avoid nephrotoxins if possible. No acute indication for PLIER WORKER at this time.
[2017-08-08] MEDS: Insulin LISPRO 300 UNITS/3 ML VIAL SQ SCH ×5 (07:44→21:17)
[2017-08-08] MEDS: Sennosides/Docusate Sodium TABLET PO SCH ×2 (07:47→21:17)
[2017-08-08 08:28] LABS: ANA IgG by ELISA NONE DETECTED (None Detected); Complement Component 3 147 mg/dL (88-201); Complement Component 4 31 mg/dL (10-40)
[2017-08-08 08:39] LABS: IFE Reflexed NOT DONE
[2017-08-08] MEDS: cefTRIAXone 2,000 MG in Water for inj. (sterile) 20 ML 20 ML IVP SCH (12:16)
[2017-08-08] MEDS: Ondansetron 4 MG/2 ML VIAL IVP PRN (16:11)
--- NOTE | 2017-08-08 17:21 | Internal Med Progress Note ---
Date of Encounter: 08/08/17 Time of Encounter: 17:16 - Assessment and plan (1) Sepsis Current Visit: Yes Status: Acute Assessment and plan: Likely from UTI/Pyelonephritis Presented to outside facility with fever, tachycardia, leukocytosis with left shift, and UA and CT abdomen/pelvis suggestive of UTI/pyelo. BCx 08/04 and 08/06: NGTD WBCs, temp, HR all normal, no longer septic Continue Rocephin PT/OT recs SNF/ECF on discharge Qualifiers: Sepsis type: sepsis due to unspecified organism Qualified Code(s): A41.9 - Sepsis, unspecified organism (2) Gross hematuria Current Visit: Yes Status: Acute Assessment and plan: Resolved. Possibly hematuria vs hemorrhoids. Patient not active and often her stool and urine are mixed in bed. Hemodynamically stable and H&H stable (3) Acute pyelonephritis Current Visit: Yes Status: Acute Assessment and plan: (UTI). Continue treatment of sepsis (4) Renal failure Current Visit: Yes Status: Acute Assessment and plan: Stable, discussed case with Nephrology team, this likely is acute on chronic. Strict I/Os Nephrology on board, recommendation appreciated. Qualifiers: Renal failure chronicity: unspecified chronicity Qualified Code(s): N19 - Unspecified kidney failure (5) UTI (urinary tract infection) Current Visit: Yes Status: Acute Assessment and plan: As above Qualifiers: Urinary tract infection type: acute pyelonephritis Qualified Code(s): N10 - Acute pyelonephritis (6) Morbid obesity with BMI of 50.0-59.9, adult Current Visit: Yes Status: Chronic (7) Diabetes Current Visit: Yes Status: Chronic Assessment and plan: Levemir 22 units HS, Humalog TID with meals, ISS Qualifiers: Diabetes mellitus type: type 2 Diabetes mellitus complication status: with skin complications Diabetes mellitus complication detail: with foot ulcer Diabetes mellitus nursing home insulin use: with ferry terminal supervisor use Qualified Code(s) : E11.621 - Type 2 diabetes mellitus with foot ulcer; L97.509 - Non-pressure chronic ulcer of other part of unspecified foot with unspecified severity; L97.509 - Non-pressure chronic ulcer of other part of unspecified foot with unspecified severity; L97.509 - Non-pressure chronic ulcer of other part of unspecified foot with unspecified severity; L97.509 - Non-pressure chronic ulcer of other part of unspecified foot with unspecified severity; Z79.4 - correction (current) use of insulin; Z79.4 - correction (current) use of insulin; Z79.4 - correction (current) use of insulin; Z79.4 - correction (current) use of insulin (8) Chronic ulcer of leg Current Visit: Yes Status: Acute Assessment and plan: Wound care following Qualifiers: Laterality: right Non-pressure ulcer stage: unspecified non-pressure ulcer stage Qualified Code(s): L97.919 - Non-pressure chronic ulcer of unspecified part of right lower leg with unspecified severity - Subjective Interval history: Had onset of hematuria this afternoon and nursing reported there was clots present. She was transferred to another floor later in day for administrative reasons. Nurse who took over patient care also noted that she had gross hematuria. This time without clots. Patient denied abdominal/suprapubic/flank pain, dysuria, frequency, change in odor. 08/08: Patient has no complaitns today. Per nursing, hematuria has resolved in afternoon. - Constitutional Vitals: Temp Pulse Resp BP Pulse Ox 97.6 F 76 16 136/81 95 08/08/17 15:01 08/08/17 15:01 08/08/17 15:01 08/08/17 15:01 08/08/17 15:01 General appearance: Present: disheveled, A&O X 3, morbidly obese Exam: CVS: RRR Lungs: CTAB Abd: NT/ND, normal bowel sounds Ext: + bipedal edema extending to shins Internal Medicine: Result - Labs CBC & Chem 7: 08/08/17 04:46 08/08/17 04:46 Labs: Short CBC 08/08/17 Range/Units 04:46 WBC 6.7 (4.3-11.1) K/mcL Hgb 9.4 L (11.5-15.4) g/dL Hct 31.6 L (35.3-44.9) % Plt Count 173 (140-400) K/mcL Neutrophils # 4.7 (1.6-8.9) K/mcL BMP 08/08/17 04:46 Sodium 140 Potassium 4.4 Chloride 112 H Carbon Dioxide 18 L BUN 32 H Creatinine 2.25 H Glucose 97 Calcium 8.4 L - ABG Interpretation ABG results: PT/INR, D-dimer PT 48.9 Seconds (9.4-12.1) H* 08/08/17 04:46 Consult Discharge Plan - Plan Referrals: Kenyetta Manning, RESTAURANT MGR [Primary Care Provider] -
[2017-08-09] MEDS: 0.9 % Sodium Chloride 1,000 ML IVC SCH ×2 (01:19→07:32)
[2017-08-09 01:47] LABS: Urine Collection Duration RANDOM hr; Urine Collection Volume RANDOM mL
[2017-08-09 06:45] LABS: Hematocrit 31.3 % (35.3-44.9); Hemoglobin 9.4 g/dL (11.5-15.4); Mean Corpuscular Hemoglobin 27.7 pg (28.0-33.3); Mean Corpuscular Volume 92.3 fL (83.0-100.0); Mean Platelet Volume 10.5 fL (9.4-12.4); Platelet Count 163 K/mcL (140-400); Red Blood Count 3.39 M/mcL (3.82-4.97); Red Cell Distribution Width 15.1 % (11.5-14.5)
[2017-08-09 07:11] LABS: Albumin/Globulin Ratio 0.7 (1.1-2.2); Bilirubin,Total 0.3 mg/dL (0.3-1.0); Calcium 8.1 mg/dL (8.6-10.3); Globulin 4.1 g/dL (2.4-3.5); Magnesium 2.1 mg/dL (1.6-2.6); Phosphorous 3.8 mg/dL (2.7-4.5); Total Protein 7.1 g/dL (6.4-8.9)
[2017-08-09 07:39] LABS: Prothrombin Time 49.6 Seconds (9.4-12.1)
[2017-08-09] MEDS: Insulin LISPRO 300 UNITS/3 ML VIAL SQ SCH ×4 (07:39→21:09)
[2017-08-09 07:40] LABS: INR 4.5
--- NOTE | 2017-08-09 07:58 | Nephrology Progress Note ---
Date of Encounter: 08/09/17 Time of Encounter: 07:58 - Assessment and Plan (1) CECIL (acute kidney injury) Current Visit: Yes Status: Acute CECIL on CKD stage III Baseline GFR 31 Today Scr 2.15, GFR 23 FeNa 2.2 % indicating Intrinsic etiology (e.g. ATN, AIN, glomerulonephritides) Renal ultrasound revealed mildly echogenic kidneys which may be seen in medical renal disease, 7.1 cm mildly complex left renal cyst, and significant postvoid residual measuring approximately 257 mL. D/c IVF Continue strict I/Os Avoid nephrotoxins Patient is on a high dose of Gabapentin-recommend renal appropriate dose: if Scr baseline is truly in the 30s then no more than 700mg bid; if workup shows kidney function is even less, then Gabapentin would need to be decreased further. (2) CKD (chronic kidney disease), stage III Current Visit: Yes Status: Chronic Baseline GFR 31 Avoid nephrotoxins Continue to monitor (3) Proteinuria Current Visit: Yes Status: Acute FeNa 2.2 % indicating Intrinsic etiology (e.g. ATN, AIN, glomerulonephritides) UA reveals 100 mg/dL urine protein Elevated protein/creatinine ratio 1.60 Negative urine eosinophils CPK < 10, serum uric acid 7.2, PTH 85, SAGAR negative, C3 & C4 compliment levels WNL UPEP pending Qualifiers: Proteinuria type: unspecified Qualified Code(s): R80.9 - Proteinuria, unspecified (4) Vitamin D deficiency Current Visit: Yes Status: Acute Vit D level 14 Supplement Vit D 50,000 U weekly Outpatient monitoring (5) Acute pyelonephritis Current Visit: Yes Status: Acute Management per primary team (6) Renal cyst, left Current Visit: Yes Status: Acute Renal ultrasound revealed 7.1 cm mildly complex left renal cyst Outpatient monitoring (7) Sepsis Current Visit: Yes Status: Acute Management per primary team Qualifiers: Sepsis type: sepsis due to unspecified organism Qualified Code(s): A41.9 - Sepsis, unspecified organism (8) Metabolic acidosis Current Visit: Yes Status: Acute Metabolic acidosis due to diarrhea/ GI losses Start bicarb PO TID Continue to monitor (9) Anemia due to stage 3 chronic kidney disease Current Visit: Yes Status: Acute Anemia work up Iron studies, Vit B12, folate levels pending Continue to monitor (10) Anticoagulated on Coumadin Current Visit: Yes Status: Acute Management per primary team (11) Diabetes Current Visit: Yes Status: Chronic Management per primary team Qualifiers: Diabetes mellitus type: type 2 Diabetes mellitus complication status: with skin complications Diabetes mellitus complication detail: with foot ulcer Diabetes mellitus extermination inspector insulin use: with nursing home use Qualified Code(s) : E11.621 - Type 2 diabetes mellitus with foot ulcer; L97.509 - Non-pressure chronic ulcer of other part of unspecified foot with unspecified severity; L97.509 - Non-pressure chronic ulcer of other part of unspecified foot with unspecified severity; L97.509 - Non-pressure chronic ulcer of other part of unspecified foot with unspecified severity; L97.509 - Non-pressure chronic ulcer of other part of unspecified foot with unspecified severity; Z79.4 - care home (current) use of insulin; Z79.4 - care home (current) use of insulin; Z79.4 - manager intermediate (current) use of insulin; Z79.4 - care home (current) use of insulin (12) Morbid obesity with BMI of 50.0-59.9, adult Current Visit: Yes Status: Chronic Management per primary team Subjective Principal diagnosis: CECIL on CKD Interval history: Patient seen and examined resting comfortably in bed. Patient reports loose BM last PM and denies further hematuria. Her INR level has increased and her Coumadin remains on hold. She had 35 UOP documented yesterday but patient reports good urine output. Case discussed with nursing. Objective - Vital Signs Vital signs: Vital Signs Temp Pulse Resp BP Pulse Ox 08/09/17 07:25 97.5 F L 75 18 127/74 89 08/09/17 03:26 97.8 F 73 16 121/67 91 08/09/17 00:32 97.7 F 74 16 156/71 95 08/08/17 21:42 97.9 F 78 18 156/75 92 08/08/17 15:01 97.6 F 76 16 136/81 95 08/08/17 11:41 98.0 F 63 16 129/71 93 Intake and Output 08/08/17 08/08/17 08/09/17 15:59 23:59 07:59 Intake Total 140 / 140 1500 / 1500 Output Total 35 / 35 Balance 105 / 105 1500 / 1500 Intake: IV Fluids 20 / 20 1000 / 1000 0.9 % Sodium Chloride 1,000 ML 1000 / 1000 @ 100 mls/hr IVC .Q10H [facility] Rx#: [id number] Rocephin 2,000 MG In Water for 20 / 20 inj. (sterile) 20 ML @ 600 mls/ hr IVP Q24H [facility] Rx#:[id number] Oral 120 / 120 500 / 500 Output: Urine 35 / 35 Other: Meal Lunch Percent of Meal Consumed 75% Stool Size Moderate Large Small Stool Consistency formed loose soft formed Stool Characteristics Normal for Patient Stool Color Brown Brown # Voids 1 1 # Bowel Movements 1 1 1 Weight 144.877 kg Blood Glucose* 92 99 89 Patient Weight 08/09/17 23:59 Weight 144.877 kg - General Appearance General appearance: Present: well-developed, well-nourished, obese EENT: Present: ATNC, PERRL, mucous membranes moist Neck: Present: supple Respiratory: Present: clear Cardiology: Present: no murmurs, no rub, no gallops, edema (Chronic lymphedema BLE) Gastrointestinal: Present: normoactive bowel sounds, no tenderness, no guarding , obese Integumentary: Present: no rash, warm and dry (Chronic lymphedema venous stasis BLE) Neurologic: Present: no focal deficit, alert and oriented x3 Musculoskeletal: Present: no deformities, no erythema Psychiatric: Present: mood/affect appropriate, cooperative - Lab 08/09/17 06:36 08/09/17 06:36 Most recent lab results Calcium 8.1 mg/dL (8.6-10.3) L 08/09/17 06:36 Phosphorus 3.8 mg/dL (2.7-4.5) 08/09/17 06:36 Magnesium 2.1 mg/dL (1.6-2.6) 08/09/17 06:36 Urine Creatinine 58 mg/dL 08/06/17 14:40 Urine Sodium 73.5 mEq/L 08/06/17 14:40 Urine Total Protein 93 mg/dL 08/06/17 14:40 Consult Discharge Plan - Plan Referrals: Kenyetta Manning, PHARMACEUTICAL DEVELOPMENT TECHNICIAN [Primary Care Provider] -
[2017-08-09] MEDS ORDERED: *HR* Phytonadione 5 MG TABLET PO ONE ×2 (08:23→11:45)
[2017-08-09] MEDS: Nystatin POWDER 30 GM BOTTLE TP SCH ×2 (09:10→21:08)
[2017-08-09] MEDS: Sennosides/Docusate Sodium TABLET PO SCH ×2 (11:29→21:07)
[2017-08-09] MEDS: Leptospermum Honey Gel 44 ML TUBE TP SCH ×2 (11:30→21:07)
[2017-08-09] MEDS: Ondansetron 4 MG/2 ML VIAL IVP PRN (11:34)
[2017-08-09 12:21] LABS: % Iron Saturation 9 % (15-50); Iron 22 mcg/dL (50-170); Transferrin 171 mg/dL (203-362)
[2017-08-09] MEDS: cefTRIAXone 2,000 MG in Water for inj. (sterile) 20 ML 20 ML IVP SCH (13:25)
[2017-08-09 14:11] LABS: Folate 6.2 ng/mL (3.0-16.0)
--- NOTE | 2017-08-09 20:12 | Internal Med Progress Note ---
Date of Encounter: 08/09/17 Time of Encounter: 18:10 - Assessment and plan (1) Sepsis Current Visit: Yes Status: Acute Assessment and plan: Likely from UTI/Pyelonephritis Presented to outside facility with fever, tachycardia, leukocytosis with left shift, and UA and CT abdomen/pelvis suggestive of UTI/pyelo. BCx 08/04 and 08/06: NGTD WBCs, temp, HR all normal, no longer septic Continue Rocephin PT/OT recs SNF/ECF on discharge Qualifiers: Sepsis type: sepsis due to unspecified organism Qualified Code(s): A41.9 - Sepsis, unspecified organism (2) Gross hematuria Current Visit: Yes Status: Acute Assessment and plan: Resolved. Possibly hematuria vs hemorrhoids. Patient not active and often her stool and urine are mixed in bed. Hemodynamically stable and H&H stable (3) Acute pyelonephritis Current Visit: Yes Status: Acute Assessment and plan: (UTI). Continue treatment of sepsis (4) Renal failure Current Visit: Yes Status: Acute Assessment and plan: Stable, discussed case with Nephrology team, this likely is acute on chronic. Strict I/Os Nephrology on board, recommendation appreciated. Qualifiers: Renal failure chronicity: unspecified chronicity Qualified Code(s): N19 - Unspecified kidney failure (5) UTI (urinary tract infection) Current Visit: Yes Status: Acute Assessment and plan: As above Qualifiers: Urinary tract infection type: acute pyelonephritis Qualified Code(s): N10 - Acute pyelonephritis (6) Morbid obesity with BMI of 50.0-59.9, adult Current Visit: Yes Status: Chronic (7) Diabetes Current Visit: Yes Status: Chronic Assessment and plan: Levemir 22 units HS, Humalog TID with meals, ISS Qualifiers: Diabetes mellitus type: type 2 Diabetes mellitus complication status: with skin complications Diabetes mellitus complication detail: with foot ulcer Diabetes mellitus penitentiary insulin use: with joint terminal attack controller use Qualified Code(s) : E11.621 - Type 2 diabetes mellitus with foot ulcer; L97.509 - Non-pressure chronic ulcer of other part of unspecified foot with unspecified severity; L97.509 - Non-pressure chronic ulcer of other part of unspecified foot with unspecified severity; L97.509 - Non-pressure chronic ulcer of other part of unspecified foot with unspecified severity; L97.509 - Non-pressure chronic ulcer of other part of unspecified foot with unspecified severity; Z79.4 - shelter (current) use of insulin; Z79.4 - shelter (current) use of insulin; Z79.4 - shelter (current) use of insulin; Z79.4 - shelter (current) use of insulin (8) Chronic ulcer of leg Current Visit: Yes Status: Acute Assessment and plan: Wound care following Qualifiers: Laterality: right Non-pressure ulcer stage: unspecified non-pressure ulcer stage Qualified Code(s): L97.919 - Non-pressure chronic ulcer of unspecified part of right lower leg with unspecified severity - Subjective Interval history: Had onset of hematuria this afternoon and nursing reported there was clots present. She was transferred to another floor later in day for administrative reasons. Nurse who took over patient care also noted that she had gross hematuria. This time without clots. Patient denied abdominal/suprapubic/flank pain, dysuria, frequency, change in odor. 2: Patient has no complaitns today. Per nursing, hematuria has resolved in afternoon. 2/2: No acute issues - Constitutional Vitals: Temp Pulse Resp BP Pulse Ox 98.2 F 75 18 145/70 94 08/09/17 18:32 08/09/17 18:32 08/09/17 18:32 08/09/17 18:32 08/09/17 18:32 General appearance: Present: disheveled, A&O X 3, morbidly obese Exam: CVS: RRR Lungs: CTAB Abd: NT/ND, normal bowel sounds Ext: + bipedal edema extending to shins Internal Medicine: Result - Labs CBC & Chem 7: 08/09/17 06:36 08/09/17 06:36 Labs: Short CBC 08/09/17 Range/Units 06:36 WBC 5.0 (4.3-11.1) K/mcL Hgb 9.4 L (11.5-15.4) g/dL Hct 31.3 L (35.3-44.9) % Plt Count 163 (140-400) K/mcL BMP 08/09/17 06:36 Sodium 141 Potassium 4.0 Chloride 114 H Carbon Dioxide 22 L BUN 28 H Creatinine 2.15 H Glucose 84 Calcium 8.1 L Liver Function 08/09/17 Range/Units 06:36 Total Bilirubin 0.3 (0.3-1.0) mg/dL AST 8 L (13-39) Units/L ALT 5 L (7-52) Units/L Alkaline Phosphatase 68 (34-104) Units/L Albumin 3.0 L (3.5-5.7) g/dL - ABG Interpretation ABG results: PT/INR, D-dimer PT 49.6 Seconds (9.4-12.1) H* 08/09/17 06:36 Consult Discharge Plan - Plan Referrals: Kenyetta Manning, ENVIRONMENTAL SERVICES FLOOR TECH [Primary Care Provider] -
[2017-08-10] MEDS: Ondansetron 4 MG/2 ML VIAL IVP PRN ×2 (00:41→11:20)
[2017-08-10 06:47] LABS: Hematocrit 29.2 % (35.3-44.9); Hemoglobin 9.1 g/dL (11.5-15.4); Mean Corpuscular HGB Conc 31.2 g/dL (31.6-35.5); Mean Corpuscular Hemoglobin 28.1 pg (28.0-33.3); Mean Corpuscular Volume 90.1 fL (83.0-100.0); Mean Platelet Volume 10.5 fL (9.4-12.4); Platelet Count 164 K/mcL (140-400); Red Blood Count 3.24 M/mcL (3.82-4.97); Red Cell Distribution Width 15.3 % (11.5-14.5)
[2017-08-10 07:13] LABS: Albumin/Globulin Ratio 0.7 (1.1-2.2); Bilirubin,Total 0.3 mg/dL (0.3-1.0); Calcium 8.3 mg/dL (8.6-10.3); Globulin 4.1 g/dL (2.4-3.5); Potassium 4.1 mEq/L (3.5-5.1); Total Protein 7.1 g/dL (6.4-8.9)
[2017-08-10 07:19] LABS: INR 5.2; Prothrombin Time 57.5 Seconds (9.4-12.1)
[2017-08-10] MEDS: Insulin LISPRO 300 UNITS/3 ML VIAL SQ SCH ×2 (09:08→11:46)
[2017-08-10] MEDS: Leptospermum Honey Gel 44 ML TUBE TP SCH (09:12)
[2017-08-10] MEDS: Nystatin POWDER 30 GM BOTTLE TP SCH (09:13)
[2017-08-10] MEDS: Sennosides/Docusate Sodium TABLET PO SCH (09:13)
--- NOTE | 2017-08-10 10:20 | Nephrology Progress Note ---
Date of Encounter: 08/10/17 Time of Encounter: 10:19 Subjective Principal diagnosis: CECIL on CKD Interval history: Patient seen. She is asleep. Spoke with the covering hospitalist about potential discharge. Objective - Vital Signs Vital signs: Vital Signs Temp Pulse Resp BP Pulse Ox 08/10/17 07:04 97.7 F 74 18 121/72 90 08/10/17 04:31 97.7 F 85 16 149/81 94 08/10/17 00:26 97.6 F 75 18 152/78 92 08/09/17 18:32 98.2 F 75 18 145/70 94 08/09/17 10:54 97.4 F L 73 18 136/73 93 Intake and Output 08/09/17 08/10/17 08/10/17 23:59 07:59 15:59 Intake Total 240 / 240 100 / 100 Output Total 250 / 250 450 / 450 Balance -10 / -10 -350 / -350 Intake: Oral 240 / 240 100 / 100 Output: Urine 250 / 250 450 / 450 Other: Meal Dinner Breakfast Percent of Meal Consumed 100% 95% Stool Size Small Stool Consistency soft formed Stool Color Brown # Voids 1 1 # Bowel Movements 1 Weight 143.154 kg Blood Glucose* 100 93 Patient Weight 08/10/17 23:59 Weight 143.154 kg - General Appearance General appearance: Present: well-developed, well-nourished EENT: Present: ATNC Cardiology: Present: no edema Musculoskeletal: Present: no cyanosis - Lab 08/10/17 05:55 08/10/17 05:55 Most recent lab results Calcium 8.3 mg/dL (8.6-10.3) L 08/10/17 05:55 Phosphorus 3.8 mg/dL (2.7-4.5) 08/09/17 06:36 Magnesium 2.1 mg/dL (1.6-2.6) 08/09/17 06:36 Urine Creatinine 58 mg/dL 08/06/17 14:40 Urine Sodium 73.5 mEq/L 08/06/17 14:40 Urine Total Protein 93 mg/dL 08/06/17 14:40 Consult Discharge Plan - Plan Referrals: Kenyetta Manning, NETWORK OPERATIONS TECHNICIAN [Primary Care Provider] - Prescriptions: Ondansetron [Zofran] 4 mg PO Q8HR PRN #15 tablet PRN Reason: Nausea And Vomiting Cephalexin [Keflex] 500 mg PO TID 7 Days #21 capsule
--- NOTE | 2017-08-10 10:21 | Discharge Summary ---
Date of Encounter: 08/10/17 Time of Encounter: 10:05 - Discharge Diagnosis (1) Sepsis Priority: Primary Status: Acute Qualifiers: Sepsis type: sepsis due to unspecified organism Qualified Code(s): A41.9 - Sepsis, unspecified organism (2) Gross hematuria Priority: Secondary Status: Acute (3) Acute pyelonephritis Priority: Secondary Status: Acute (4) Renal failure Priority: Secondary Status: Acute Qualifiers: Renal failure chronicity: unspecified chronicity Qualified Code(s): N19 - Unspecified kidney failure (5) UTI (urinary tract infection) Priority: Secondary Status: Acute Qualifiers: Urinary tract infection type: acute pyelonephritis Qualified Code(s): N10 - Acute pyelonephritis (6) Morbid obesity with BMI of 50.0-59.9, adult Priority: Secondary Status: Chronic (7) Diabetes Priority: Secondary Status: Chronic Qualifiers: Diabetes mellitus type: type 2 Diabetes mellitus complication status: with skin complications Diabetes mellitus complication detail: with foot ulcer Diabetes mellitus terminal clerk insulin use: with [facility] use Qualified Code(s) : E11.621 - Type 2 diabetes mellitus with foot ulcer; L97.509 - Non-pressure chronic ulcer of other part of unspecified foot with unspecified severity; L97.509 - Non-pressure chronic ulcer of other part of unspecified foot with unspecified severity; L97.509 - Non-pressure chronic ulcer of other part of unspecified foot with unspecified severity; L97.509 - Non-pressure chronic ulcer of other part of unspecified foot with unspecified severity; Z79.4 - care home (current) use of insulin; Z79.4 - terminal clerk (current) use of insulin; Z79.4 - terminal clerk (current) use of insulin; Z79.4 - care home (current) use of insulin (8) Chronic ulcer of leg Priority: Secondary Status: Acute Qualifiers: Laterality: right Non-pressure ulcer stage: unspecified non-pressure ulcer stage Qualified Code(s): L97.919 - Non-pressure chronic ulcer of unspecified part of right lower leg with unspecified severity - Discharge Medications Prescriptions: Ondansetron [Zofran] 4 mg PO Q8HR PRN #15 tablet PRN Reason: Nausea And Vomiting Cephalexin [Keflex] 500 mg PO TID 7 Days #21 capsule Ergocalciferol (VITAMIN D2) [Drisdol (50,000 Unit)] 50,000 unit PO QWEEK #4 capsule Home Medications: Insulin Glargine [Lantus] 46 units IJ HS 08/04/17 [History] Cephalexin [Keflex] 500 mg PO TID 7 Days #21 capsule 08/10/17 [Rx] Ergocalciferol (VITAMIN D2) [Drisdol (50,000 Unit)] 50,000 unit PO QWEEK #4 capsule 08/10/17 [Rx] Ondansetron [Zofran] 4 mg PO Q8HR PRN #15 tablet 08/10/17 [Rx] Allergies/Adverse Reactions: 3 Allergy/AdvReac Type Severity Reaction Status Date / Time acetaminophen [From Vicodin] AdvReac Fever Verified 08/04/17 12:11 hydrocodone [From Vicodin] AdvReac Fever Verified 08/04/17 12:11 Date of admission: 08/04/17 08:35 Primary care physician: Kenyetta Manning Consults: 08/04/17 06:47 Consult to Nutrition [CONS] Routine Comment: Consulting Provider: NUTRITION Reason for Dietary Consult: MST Score Consult to Pastoral Services [CONS] Routine Comment: 08/04/17 08:06 Consult to Occupational Therapy [CONS] Routine Comment: Evaluate, develop and implement POC Reason for Consult: Non-ambulatory Consult to Physical Therapy [CONS] Routine Comment: Evaluate, develop and implement POC Reason for Consult: Non-ambulatory 08/04/17 10:41 Consult to Wound Care [CONS] Routine Reason for Consult: right heel/possible DM wound. Call Completed: Yes 08/06/17 08:21 Consult to Nephrology [CONS] Routine Consulting Provider: Sharon Wasserman Reason for Consult: Renal failure, unknown baseline. Call Completed: Yes 08/07/17 08:35 Consult to Foreign Language Professor [CONS] Routine Reason for SW Consult: discharge planning Discharging clinician: Louann Michaud - Patient Status Disposition: Home Health Service Condition: Fair Functional capacity at discharge: wheelchair bound Overall status at discharge: patient is back to baseline - Ambulatory Orders Ambulatory Orders: Prothrombin Time INR [COAG] Time Frame: 2 Days, Facility: [facility], Location: Lab - Discharge Instructions Follow Up With: Kenyetta Manning, MATERIALS MANAGEMENT CLERK [Primary Care Provider] - - Diet and Activity Activity: increase activity as tolerated Diet: diabetic diet, low fat, low cholesterol, low salt diet Hospital course: Ms. Jacobsen is a 67 year old female with Morbid Obesity, Factor V leiden , Hx of DVT on Coumadin, bed bound , DM She was transferred from outside facility for management of sepsis secondary to UTI , with lactic acidosis and CECIL Patient is seen and evaluated at bedside She states she has been bed bound and not ambulatory on her feet "because her doctor said so" she has a chronic right heel wound which she has been told not to bear weight on. She was in her usual state of health till a few days ago when she developed frequency and burning urination and associated fever, chills , rigors and back pain. She also has been coughing, productive of sputum, no sick contacts, no chest pain, she has chronic leg swelling from venous stasis. She denies shortness of breath, she is currently not ambulatory. She is on anticoagulation for Factor V leiden. She denies diarrhea, she reports associated nausea and poor oral intake. No vomiting at this time. She denies recent instrumentation, no recent hospitalizations. At referral facility, she was worked up and found to be tachycardic, she had a WBC of 19.5 with left shift, Lactic acidosis of 2.0, UA showed LE negative, [place] +, few bacteria. She was sent here for further management. She was admitted Patient was started on Rocephin. Blood cultures and urine cultures were negative. Nephrology was consulted for renal failure, unsure if this is chronic or acute since patient has not had any labs since 2015. She was given IV fluids and nephrotoxic medications avoided. Renal function improved. Clinically she was no longer septic. Patient had hematuria She completed 7 days of Rocephin therapy. - Repeat urinalysis to follow-up for hematuria. - Recheck INR in 2 days. - Continue Keflex for 7 days to complete 7 days of Rocephin - Time Spent with Patient Total time spent providing and/or coordinating discharge services: - Constitutional Vitals: Temp Pulse Resp BP Pulse Ox 97.7 F 74 18 121/72 90 08/10/17 07:04 08/10/17 07:04 08/10/17 07:04 08/10/17 07:04 08/10/17 07:04 General appearance: Present: disheveled, A&O X 3, morbidly obese Exam: CVS: RRR Lungs: CTAB Abd: NT/ND, normal bowel sounds Ext: + bipedal edema extending to shins
--- NOTE | 2017-08-10 10:36 | Physician Discharge Referral ---
Home Health/Hosp Referral Info Transfer to: Home Health Provider in Charge Post Discharge: PCP - Diagnosis (1) Sepsis Priority: Primary Status: Acute (2) Gross hematuria Priority: Secondary Status: Acute (3) Acute pyelonephritis Priority: Secondary Status: Acute (4) Renal failure Priority: Secondary Status: Acute (5) UTI (urinary tract infection) Priority: Secondary Status: Acute (6) Morbid obesity with BMI of 50.0-59.9, adult Priority: Secondary Status: Chronic (7) Diabetes Priority: Secondary Status: Chronic (8) Chronic ulcer of leg Priority: Secondary Status: Acute - Respiratory Orders Smoking Cessation: Smoking cessation has been advised. For more information, call the [place] Tobacco Quit Line at 7-858-BDTX-NOW. - Services Needed Following services are medically necessary services: Nursing (INR checks), Physical Therapy, Occupational Therapy - Transfer Medications Prescriptions: Ondansetron [Zofran] 4 mg PO Q8HR PRN #15 tablet PRN Reason: Nausea And Vomiting Cephalexin [Keflex] 500 mg PO TID 7 Days #21 capsule Ergocalciferol (VITAMIN D2) [Drisdol (50,000 Unit)] 50,000 unit PO QWEEK #4 capsule Home Medications: Insulin Glargine [Lantus] 46 units IJ HS 08/04/17 [History] Cephalexin [Keflex] 500 mg PO TID 7 Days #21 capsule 08/10/17 [Rx] Ergocalciferol (VITAMIN D2) [Drisdol (50,000 Unit)] 50,000 unit PO QWEEK #4 capsule 08/10/17 [Rx] Ondansetron [Zofran] 4 mg PO Q8HR PRN #15 tablet 08/10/17 [Rx] Allergies/Adverse Reactions: 3 Allergy/AdvReac Type Severity Reaction Status Date / Time acetaminophen [From Vicodin] AdvReac Fever Verified 08/04/17 12:11 hydrocodone [From Vicodin] AdvReac Fever Verified 08/04/17 12:11 Certification: Further, I certify that my clinical findings support that this patient is homebound (i.e. absences from home require considerable and taxing effort and are for medical reasons or scientology services or infrequently or short duration when for other reasons) because: Homebound Reason: Patient requires assistance of a person or device to safely leave home Attestation: My signature below is to certify that this patient is under my care and that I, or nurse practitioner, or a physician's medical laboratory assistant working with me, has a face-to -face encounter with this patient.
[2017-08-10 10:49] VITALS: BP 153/66
[2017-08-10] MEDS ORDERED: FLUARIX QUAD 2017-18 36MOS UP/PF 0.5 ML SYRINGE IM ONE (10:51)
== END 2017-08-10 11:54 | disposition home health service (06) | DRG 872 ==
LOC: 3NENU → 1NENUPED 08-05 10:38 → 2ANU 08-07 14:02
PROVIDERS: ADMIT Internal Medicine Hematology & Oncology; ATTEND Internal Medicine